=== PATIENT | male | born 1955 | race African-American/Black ===

== ENCOUNTER 2017-08-01 19:01 | Inpatient (IN) | payer MEDICARE, MEDICAID ==
[2017-08-01] MEDS ORDERED: Ondansetron HCl/PF 4 MG/2 ML Vial ONE (19:42)
[2017-08-01 19:43] LABS: #Basophils 0.1 thou/uL (0.0-0.2); #Eosinphils 0.1 thou/uL (0.0-0.7); #Lymphocytes 1.3 thou/uL (1.20-3.40); #Monocytes 0.7 thou/uL (0.11-0.59); #Neutrophils 5.5 thou/uL (1.40-6.50); %Basophils 0.8 % (0.0-1.0); %Eosinophils 0.7 % (0.0-10.0); %Lymphocytes 16.5 % (21.0-51.0); %Monocytes 9.8 % (0.0-10.0); Hematocrit 50.8 % (42.0-52.0); Mean Platelet Volume 9.3 fL (7.4-10.4); Red Blood Cell (RBC) Count 6.12 mill/uL (4.70-6.10); White Blood Cell (WBC) Count 7.6 thou/uL (4.8-10.8)
[2017-08-01 19:50] LABS: PTT 34.4 SEC (22.9-36.1)
[2017-08-01] MEDS ORDERED: Pantoprazole 40 MG VIAL ONE (20:00)
[2017-08-01 20:04] LABS: ALT (SGPT) 33 U/L (8-55); AST (SGOT) 67 U/L (5-34); Alkaline Phosphatase 185 U/L (40-150); Anion Gap 15 mmol/L (10-20); BUN (Urea Nitrogen) 17 mg/dL (8.4-25.7); Bilirubin, Total 1.1 mg/dL (0.2-1.2); Calc. Creatinine Clearance 0 mL/min (70-130); Calcium 9.9 mg/dL (7.8-10.44); Carbon Dioxide 25 mmol/L (23-31); Chloride 99 mmol/L (98-107); Estimated GFR-MDRD 81; Globulin 5.5 g/dL (2.4-3.5); Protein, Total 9.2 g/dL (5.8-8.1)
[2017-08-01] MEDS ORDERED: Pantoprazole 80 MG, Admixture Fee 1 EACH in Sodium Chloride 0.9% 100 ML IVP SCH (20:30)
--- NOTE | 2017-08-01 21:30 | RAD ---
ACUTE ABDOMINAL SERIES 08/01/17 HISTORY: Hypoxemia, abdominal distention, GI bleed. CHEST X-RAY: Compared to study on 03/28/13. FINDINGS: Tracheostomy device and nasogastric tube are no longer visualized. There is elevation of the right h emidiaphragm with mild atelectasis at the right lung base. The lungs are otherwise clear. The cardia c silhouette is at the upper limits of normal in size. Vascular calcification seen in the thoracic a siva. No free intraperitoneal gas is seen beneath the hemidiaphragms. There has been no other interv al change from the prior exam. SUPINE AND LEFT LATERAL DECUBITUS VIEWS OF THE ABDOMEN: There is prominent gaseous distention of multiple loops of bowel with moderate amount of retained fe dahlia material seen in the region of the ascending colon and at the hepatic flexure. Larger dilated lo op of gas filled bowel is seen within the central abdomen and upper pelvis which probably represents gaseous distention and dilatation of the sigmoid colon. This dilated loop of gas filled bowel was a lso present on CT abdomen and pelvis on 06/24/17. Large amount of retained fecal material in the regio n of the rectum on the prior exam is not visualized on this study. There is increased density focus seen medial to the left hip and adjacent to the ischial tuberosity likely related to area of heterot opic ossification which was seen on the prior CT exam as well. IMPRESSION: 1. Elevation right hemidiaphragm with volume loss at the right lung base. 2. Moderate amount of retained fecal material seen in the region of the ascending colon and inv olving the transverse colon and to a lesser extent splenic flexure. 3. Persistent prominent gaseous distention and dilatation of the sigmoid colon. 4. Gastrostomy tube again noted in place. POS: [facility]
[2017-08-02 00:05] LABS: Bilirubin Negative (Negative); Glucose, Urine (Dipstick) Negative (Negative); Ketone, Urine Negative (Negative); Nitrite Negative (Negative); Protein, Urine (Dipstick) 30 mg/dL (Neg-Trace)
[2017-08-02 00:07] LABS: Bacteria/HPF None Seen HPF (None Seen); Hyaline Casts/LPF 0-3 HYALINE CAST LPF (0-3 Hyaline); Squamous Epithelial None Seen HPF (0-3); WBC/HPF None Seen HPF (0-3)
[2017-08-02 00:14] LABS: Blood, Urine Negative (Negative)
[2017-08-02 00:17] LABS: RBC/HPF 0-3 HPF (0-3)
[2017-08-02] MEDS ORDERED: Ondansetron ODT 4 MG TAB SL PRN ×2 (01:16→05:54)
[2017-08-02] MEDS ORDERED: Ondansetron HCl/PF 4 MG/2 ML Vial IVP PRN ×2 (01:16→17:39)
[2017-08-02] MEDS ORDERED: Acetaminophen 325 MG TAB PO PRN (01:16)
[2017-08-02] MEDS ORDERED: Sodium Chloride 0.9% 1,000 ML IV SCH (01:30)
[2017-08-02] MEDS ORDERED: hydrALAZINE 20 MG/ML VIAL SLOW IVP PRN (05:31)
[2017-08-02] MEDS ORDERED: cloNIDine 0.1 MG TAB PO PRN (05:31)
[2017-08-02] MEDS ORDERED: Simethicone Chewable 80 MG TAB PER TUBE PRN (05:31)
[2017-08-02] MEDS ORDERED: Ondansetron ODT 4 MG TAB PO PRN (05:31)
[2017-08-02] MEDS ORDERED: Bisacodyl 10 MG SUPP PR PRN (05:31)
[2017-08-02] MEDS ORDERED: Docusate Sodium 100 MG/10 ML UDCUP PER TUBE PRN (05:31)
[2017-08-02] MEDS ORDERED: Senokot 8.6 MG TAB PER TUBE PRN (05:31)
[2017-08-02] MEDS: Sodium Chloride 0.9% 1,000 ML IV SCH ×4 (05:50→23:05)
[2017-08-02] MEDS ORDERED: cloNIDine 0.1 MG TAB PER TUBE PRN (05:53)
--- NOTE | 2017-08-02 07:19 | HP ---
DATE OF ADMISSION: 08/01/2017 PRIMARY CARE PROVIDER: Dr. Aquiles Dillard. CHIEF COMPLAINT: Vomiting blood and abdominal distention. 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 The patient was apparently noted by retirement staff with vomiting blo od in the last 24 hours. The patient apparently had complained of shortness of breath at which poin t the tube feedings were held. The patient sustained a catastrophic CVA in 2012 with flaccid hemipl egia on the left, persistent expressive aphasia as well as undergoing tracheostomy and PEG tube plac ement. The patient currently receives Osmolite 1.5 at 55 mL per hour 22 hours of the day; however, the tracheostomy tube was subsequently discontinued. The patient underwent general evaluation inclu ding CBC assessments in the emergency room showing a hemoglobin of 17. Coagulation studies were neg ative and the patient was initiated on IV Protonix at 8 mg per hour after an initial bolus of 40 mg x1. Patient received intravenous normal saline and Zofran as well as undergoing abdominal radiograp hs that showing large retained fecal material in the ascending and transverse colon. The patient wa s also noted with gaseous distention and dilation of the sigmoid colon. Nursing personnel report in creased bowel movements since admission through the emergency room. PAST MEDICAL HISTORY: 1. 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 2. Expressive aphasia, persistent secondary to #1. 3. Dysphagia secondary to #1 with chronic PEG tube feeds. 4. Hypertension. 5. Gastroesophageal reflux disease. PAST SURGICAL HISTORY: 1. Status post PEG tube placement. 2. Status post tracheostomy with subsequent removal. CURRENT MEDICATIONS: 1. Amlodipine 5 mg per PEG tube daily. 2. Vitamin D3 of 2000 units per PEG tube daily. 3. Docusate sodium 100 mg per PEG tube b.i.d. p.r.n. 4. Pepcid 20 mg per PEG tube b.i.d. 5. Glycopyrrolate 1 mg per PEG tube b.i.d. 6. Lisinopril 40 mg per PEG tube daily. 7. Lopressor 25 mg per PEG tube b.i.d. 8. Multivitamin 5 mL per PEG tube daily. 9. Klor-Con 20 mEq per PEG tube daily. 10. Simethicone 80 mg per PEG tube q.i.d. p.r.n. 11. Hydralazine 50 mg per PEG tube q.i.d. ALLERGIES: No known drug allergies. FAMILY HISTORY: No inheritable diseases per report. SOCIAL HISTORY: Resides at [facility]. No current alcohol, tobacco, or ill icit drug use. Requires 100% care for activities of daily living. REVIEW OF SYSTEMS: The following complete review of systems was negative, unless otherwise mentione d in the HPI or below: Constitutional: Weight loss or gain, ability to conduct usual activities. Skin: Rash, itching. Eyes: Double vision, pain. ENT/Mouth: Nose bleeding, neck stiffness, pain, tenderness. Cardiovascular: Palpitations, dyspnea on exertion, orthopnea. Respiratory: Shortness of breath, wheezing, cough, hemoptysis, fever or night sweats. Gastrointestinal: Poor appetite, abdominal pain, heartburn, nausea, vomiting, constipation, or diar lissett. Genitourinary: Urgency, frequency, dysuria, nocturia. Musculoskeletal: Pain, swelling. Neurologic/Psychiatric: Anxiety, depression. Allergy/Immunologic: Skin rash, bleeding tendency. PHYSICAL EXAMINATION: VITAL SIGNS: Currently, blood pressure 111/72, pulse 97, respiratory rate is 20, temperature 99 deg [place] Fahrenheit, O2 saturation 93% on 2 liters per minute by nasal cannula. GENERAL APPEARANCE: This is a 62-year-old male, opens eyes to questions, expressiv e aphasia. HEENT EXAM: Pupils are equal, round, and reactive to light and accommodation. Extraocular muscles are intact. No scleral icterus, no conjunctival injection. Nares patent. OP is clear. NECK: Supple, no cervical adenopathy, no thyromegaly, no carotid bruits, no JVD appreciated. Cervi dahlia spine with full active and passive range of motion. No meningeal signs appreciated. CHEST: Occasional crackles in basilar segments bilaterally. CARDIOVASCULAR EXAM: S1 and S2, without noted murmur. ABDOMEN: Distended, bowel sounds are positive. PEG tube intact. EXTREMITIES: Warm and dry with fair turgor. No clubbing, cyanosis, or asymmetric edema appreciated . Pulses palpable distally at the dorsalis pedis, posterior tibial, and popliteal arteries bilatera lly. Capillary refill less than 2 seconds. NEUROLOGIC EXAM: Expressive aphasia. Left flaccid hemiparesis. Positive for dysphagia. PERTINENT LABORATORY DATA AND X-RAY FINDINGS: Sodium 134, potassium of 4.5, chloride 99, CO2 of 25, BUN 17, creatinine 1.11. Estimated GFR of 81, glucose 95, calcium 9.9, AST 67, ALT 33, alkaline ph osphatase 185, albumin 3.7. CBC showed a white blood cell count 7.6, hemoglobin 17, hematocrit 51, platelet count of 187 with normal differential. PT 14.0, INR 1.1, PTT 34.4. Urinalysis is negative . Acute abdominal series dated on 08/01/2017, showed elevated right hemidiaphragm with volume loss of the right lung base. Moderate amount of retained fecal material in the region of the ascending a nd transverse colon with lesser extent of splenic flexure. Prominent gaseous distention and dilatio n of the sigmoid colon. Gastrostomy tube in place. ASSESSMENT AND PLAN: 1. Question of upper gastrointestinal bleed. The patient will be placed in observation status on m edical floor. We will continue intravenous normal saline at 100 mL per hour. Continue serial CBC a ssessment. Continue Protonix 40 mg IV every 12 hours. We will consult GI service for any further r ecommendations and to consider endoscopy if patient noted with recurrent hematemesis. 2. Abdominal distention. Questionable baseline finding. Continue stool softeners as well as Dulco lax per rectum. Continue to monitor voiding. 3. History of cerebrovascular accident with residual left hemiparesis and expressive aphasia. We w ill consult Speech Therapy for evaluation and recommendations. N.p.o. status. Hold tube feeds, pen ding GI evaluation. 4. Hypertension. Resume antihypertensive regimen with amlodipine 5 mg daily in addition to lisinop ril 40 mg per PEG tube b.i.d., metoprolol tartrate 25 mg b.i.d., and hydralazine 50 mg q.i.d. 5. Prophylaxis. Sequential compression devices while on bed. General aspiration risk, precautions . Speech therapy evaluation pending. 6. Code status is FULL. Surrogate medical decision maker is the patient's daughter, Griselda Farfan son.
[2017-08-02] MEDS ORDERED: FLU VACC QS2017-18 36 mo. & older 0.5 ML SYRINGE IM ONE (09:00)
[2017-08-02 09:08] LABS: ALT (SGPT) 28 U/L (8-55); AST (SGOT) 59 U/L (5-34); Alkaline Phosphatase 142 U/L (40-150); Anion Gap 12 mmol/L (10-20); BUN (Urea Nitrogen) 23 mg/dL (8.4-25.7); Bilirubin, Total 0.8 mg/dL (0.2-1.2); Calc. Creatinine Clearance 76 mL/min (70-130); Calcium 8.9 mg/dL (7.8-10.44); Carbon Dioxide 27 mmol/L (23-31); Chloride 103 mmol/L (98-107); Estimated GFR-MDRD 68; Globulin 4.2 g/dL (2.4-3.5); Protein, Total 7.2 g/dL (5.8-8.1)
[2017-08-02] MEDS: Metoprolol Tartrate 25 MG TAB PER TUBE SCH ×2 (09:45→23:03)
[2017-08-02] MEDS: hydrALAZINE 25 MG TAB PER TUBE SCH ×4 (09:45→23:03)
[2017-08-02] MEDS: Lisinopril 20 MG TAB PER TUBE SCH ×2 (09:45→23:02)
[2017-08-02] MEDS: Pantoprazole 40 MG VIAL IVP SCH ×2 (09:47→23:05)
[2017-08-02] MEDS: Amlodipine 5 MG TAB PER TUBE SCH (09:48)
[2017-08-02] MEDS: Glycopyrrolate 1 MG TAB PER TUBE SCH ×2 (09:49→23:04)
[2017-08-02] MEDS ORDERED: Diprivan 20 ML ONE (16:32)
[2017-08-02] MEDS ORDERED: Propofol 200 MG/20 ML VIAL ONE (17:19)
[2017-08-02] MEDS ORDERED: Promethazine HCl 25 MG/ML VIAL IM PRN (17:39)
[2017-08-02] MEDS ORDERED: Promethazine HCl 25 MG/ML VIAL SLOW IVP PRN (17:39)
--- NOTE | 2017-08-02 18:02 | CON ---
DATE OF CONSULTATION: 08/02/2017 REFERRING PHYSICIAN: Сергей Finnegan D.O. REASON FOR CONSULTATION: History of vomiting coffee-ground material in the [facility]. HISTORY OF PRESENT ILLNESS: Mr. Adiel Husain is a 62-year-old unfortunate black male who has had a CVA 40 years ago with aphasia and left-sided weakness. The patient has had a PEG tube placement do ne in the past. The patient is a [facility] resident. The patient is really nonverbal. The rashi ent was seen in the room along with the patient's mother and sister. Since admission to the [facility], the patient has had no nausea and vomiting. He is having liquid stool. There is no prior histor y of any peptic ulcer disease. No other relevant history. PAST MEDICAL HISTORY: 1. CVA with residual left-sided weakness, aphasia. 2. Hypertension. 3. Chronic acid reflux disease. SURGERIES: 1. Status post tracheostomy and PEG tube placement after stroke in the past. MEDICATIONS: 1. Amlodipine 5 mg p.o. once a day through the PEG tube. 2. Vitamin D3 2000 units once a day. 3. Docusate sodium 100 mg twice a day. 4. Pepcid 20 mg b.i.d. 5. Glycopyrrolate 1 mg per PEG tube twice a day. 6. Lisinopril 40 mg once a day. 7. Lopressor 25 once a day. 8. Multivitamin . 9. Hydralazine. ALLERGIES: None. FAMILY HISTORY: Unobtainable as he is nonverbal. SOCIAL HISTORY: The patient is a [facility] resident. No history of alcohol, drug abuse, or smok ing in the past. REVIEW OF SYSTEMS: Unobtainable. PHYSICAL EXAMINATION: GENERAL: Patient is obese. He is awake and does nod his head when asked questions. He is nonverba l. VITAL SIGNS: Afebrile. Pulse is 97, blood pressure 105/70. NECK: Supple. CARDIOVASCULAR: First and second heart sounds normal. LUNGS: Clear to auscultation. ABDOMEN: Soft to palpate. He has a PEG tube in place. The PEG tube site appears okay. Abdomen is nontender. No organomegaly or masses. EXTREMITIES: No edema. LABORATORY DATA: CBC shows WBC 7000, hemoglobin 17, hematocrit 50.8, MCV , platelet count 187 ,000, polymorphs 72, lymphocytes 16, monocytes 9. Chemistry panel: Sodium 138, potassium 4.3, chlo ride 103, bicarbonate 27, BUN is 23, creatinine 1.29, glucose is 98, calcium 8.9, bilirubin 0.8, AST 59, ALT 28, alkaline phosphatase 142, total protein 7.2, albumin 3, globulin 4.2. CLINICAL IMPRESSION: A 62-year-old black male status post cerebrovascular accident, status post PEG tube placement. The patient was found to have coffee-ground vomiting in the [facility]. However , his blood count is actually stable. The patient has had no more nausea or vomiting since admissio n. I did speak to the family about the patient having an EGD. The family is agreeable. I will tommy n for EGD this afternoon, and I will make further recommendations after EGD.
--- NOTE | 2017-08-02 22:57 | OP ---
DATE OF PROCEDURE: 08/02/2017 OPERATIVE PROCEDURE: Esophagogastroduodenoscopy. PREOPERATIVE DIAGNOSIS: Upper gastrointestinal bleeding. POSTOPERATIVE DIAGNOSES: 1. Hiatus hernia. 2. Thick coating and mucosa from food material. 3. Linear gastric ulcer of the proximal stomach with gastritis. 4. Otherwise, normal exam. That time endoscopy, no active bleeding seen. PROCEDURE IN DETAIL: The patient was placed on his left lateral position and was given sedation by Anesthesia Department. A Pentax video gastroscope under direct vision was passed down the oropharyn x of gastroesophageal junction into the stomach. The thick coating in the esophagus was some retain ed food material; this was suctioned. The underlying mucosa appeared normal. The patient has hiata l hernia. Upon entering the stomach, the scope was retroflexed to visualize the fundus and cardia. The patient had focal gastritis and also a linear ulceration over the proximal gastric body. No ac tive bleeding seen. No visible vessel seen. Over the lower gastric body, gastric antrum, no pathol ogy seen. The duodenal bulb, descending duodenum, no pathology seen. The stomach decompressed and the scope removed. RECOMMENDATIONS: 1. Protonix 40 once a day. 2. Restart tube feeding. The patient's blood count remained stable and no new developments, consid er discharge back to [facility] tomorrow.
[2017-08-03 06:39] LABS: Band 8 % (5-11); Hematocrit 38.3 % (42.0-52.0); Mean Platelet Volume 9.5 fL (7.4-10.4); Neutrophil 56 % (42-75); Red Blood Cell (RBC) Count 4.59 mill/uL (4.70-6.10); White Blood Cell (WBC) Count 5.9 thou/uL (4.8-10.8)
[2017-08-03] MEDS: Pantoprazole 40 MG VIAL IVP SCH ×2 (10:02→20:30)
[2017-08-03] MEDS: hydrALAZINE 25 MG TAB PER TUBE SCH (10:07)
[2017-08-03] MEDS: Lisinopril 20 MG TAB PER TUBE SCH (10:07)
[2017-08-03] MEDS: Amlodipine 5 MG TAB PER TUBE SCH (10:08)
[2017-08-03] MEDS: Sodium Chloride 0.9% 1,000 ML IV SCH ×2 (10:08→20:34)
[2017-08-03] MEDS: Metoprolol Tartrate 25 MG TAB PER TUBE SCH ×2 (10:08→20:29)
[2017-08-03] MEDS: Glycopyrrolate 1 MG TAB PER TUBE SCH ×2 (10:08→20:39)
--- NOTE | 2017-08-03 11:28 | RAD ---
SINGLE VIEW OF THE CHEST: COMPARISON: 03/28/2013 HISTORY: Aspiration pneumonia. FINDINGS: Single view of the chest shows a normal sized cardiomediastinal silhouette. There is no evidence of consolidation, mass, or pleural effusion. The bones are unremarkable. IMPRESSION: No evidence of acute cardiopulmonary disease. POS: [facility]
--- NOTE | 2017-08-03 15:01 | PDOC.PN ---
- Subjective Encounter Start Date: 08/03/17 Encounter Start Time: 07:00 Subjective: awake, non verbal, not in distress - Objective MAR Reviewed: Yes Result Diagrams: 08/03/17 05:34 08/02/17 08:32 Phys Exam - Physical Examination HEENT: sclera anicteric dry mucosa Neck: no JVD, supple Respiratory: no wheezing, no rales Cardiovascular: RRR, no significant murmur Gastrointestinal: soft, positive bowel sounds peg+ Musculoskeletal: pulses present has contractures of all extremities quadriparesis, with min movement of upper extre Dx/Plan (1) GI bleed Code(s): K92.2 - GASTROINTESTINAL HEMORRHAGE, UNSPECIFIED Status: Acute Qualifiers: GI bleed type/associated pathology: gastric ulcer Qualified Code(s): K25.4 - Chronic or unspecified gastric ulcer with hemorrhage (2) Hypotension Status: Acute Qualifiers: Hypotension type: unspecified hypotension type Qualified Code(s): I95.9 - Hypotension, unspecified (3) Sepsis Code(s): A41.9 - SEPSIS, UNSPECIFIED ORGANISM Status: Suspected Qualifiers: Sepsis type: sepsis due to unspecified organism Qualified Code(s): A41.9 - Sepsis, unspecified organism (4) H/O: CVA (cerebrovascular accident) Code(s): Z86.73 - PRSNL HX OF TIA (TIA), AND CEREB INFRC W/O RESID DEFICITS Status: Chronic Comment: with dense left hemiplegia and quadriparesis with contractures now (5) PUD (peptic ulcer disease) Code(s): K27.9 - PEPTIC ULC, SITE UNSP, UNSP AC OR CHR, W/O HEMOR OR PERF Status: Acute (6) Dysphagia Code(s): R13.10 - DYSPHAGIA, UNSPECIFIED Status: Chronic Comment: has peg tube (7) FTT (failure to thrive) in adult Status: Chronic - Plan montiel cultures stat -: empiric levaquin, iv fluids 100mls/hr -: has persistent hypotension with temp of 99 -: change status to inpt -: continue peg feeding, is on protonix bid * . Review of Systems - Medications/Allergies Allergies/Adverse Reactions: Allergies Allergy/AdvReac Type Severity Reaction Status Date / Time No Known Allergies Allergy Verified 08/02/17 02:09 Medications: Current Medications Amlodipine Besylate (Norvasc) 5 mg PER TUBE DAILY [facility] Last Admin: 08/03/17 10:08 Dose: 5 mg Bisacodyl (Dulcolax) 10 mg GA Q24H PRN PRN Reason: Constipation Cholecalciferol (Vitamin D3) 2,000 units PER TUBE DAILY [facility] Last Admin: 08/03/17 10:07 Dose: 2,000 units Clonidine HCl (Catapres) 0.1 mg PER TUBE Q4H PRN PRN Reason: Systolic BP > 180 Docusate Sodium (Colace Liquid) 100 mg PER TUBE BID PRN PRN Reason: Constipation Glycopyrrolate (Robinul) 1 mg PER TUBE BID [facility] Last Admin: 08/03/17 10:08 Dose: 1 mg Hydralazine HCl (Apresoline) 10 mg SLOW IVP Q4H PRN PRN Reason: Systolic BP > 180 Sodium Chloride (Normal Saline 0.9%) 1,000 mls @ 100 mls/hr IV .Q10H [facility] Last Admin: 08/03/17 10:08 Dose: 1,000 mls Levofloxacin 500 mg/ Device 100 mls @ 100 mls/hr IVPB 1500 [facility] Metoprolol Tartrate (Lopressor) 25 mg PER TUBE BID [facility] Last Admin: 08/03/17 10:08 Dose: 25 mg Ondansetron HCl (Zofran) 4 mg IVP Q6H PRN PRN Reason: Nausea/Vomiting Ondansetron HCl (Zofran Odt) 4 mg SL Q6H PRN PRN Reason: Nausea/Vomiting Pantoprazole Sodium (Protonix) 40 mg IVP Q12HR [facility] Last Admin: 08/03/17 10:02 Dose: 40 mg Potassium Chloride (Klor-Con) 20 meq PER TUBE DAILY [facility] Last Admin: 08/03/17 10:07 Dose: 20 meq Senna (Senokot) 2 tab PER TUBE HSPRN PRN PRN Reason: Constipation Simethicone (Mylicon Chewable) 80 mg PER TUBE QID PRN PRN Reason: Gas Pain
[2017-08-03] MEDS: Acetaminophen 650 MG/20.3 ML UDCUP PER TUBE PRN (23:42)
[2017-08-04] MEDS: Sodium Chloride 0.9% 1,000 ML IV SCH ×2 (07:13→18:43)
[2017-08-04 08:54] LABS: ALT (SGPT) 28 U/L (8-55); AST (SGOT) 93 U/L (5-34); Alkaline Phosphatase 112 U/L (40-150); Anion Gap 11 mmol/L (10-20); BUN (Urea Nitrogen) 24 mg/dL (8.4-25.7); Bilirubin, Total 0.4 mg/dL (0.2-1.2); Calc. Creatinine Clearance 90 mL/min (70-130); Calcium 8.5 mg/dL (7.8-10.44); Carbon Dioxide 20 mmol/L (23-31); Chloride 111 mmol/L (98-107); Estimated GFR-MDRD 84; Globulin 3.6 g/dL (2.4-3.5); Protein, Total 6.2 g/dL (5.8-8.1)
[2017-08-04 09:13] LABS: Band 12 % (5-11); Hematocrit 38.4 % (42.0-52.0); Mean Platelet Volume 9.3 fL (7.4-10.4); Metamyelocyte 4 % (0-0); Neutrophil 42 % (42-75); Reactive Lymphocytes 2 % (0-10); Red Blood Cell (RBC) Count 4.55 mill/uL (4.70-6.10); Target Cells SLIGHT = 2-5 cells (100X) (0-1/hpf); White Blood Cell (WBC) Count 4.6 thou/uL (4.8-10.8)
[2017-08-04] MEDS: Amlodipine 5 MG TAB PER TUBE SCH (10:01)
[2017-08-04] MEDS: Metoprolol Tartrate 25 MG TAB PER TUBE SCH (10:01)
[2017-08-04] MEDS: Glycopyrrolate 1 MG TAB PER TUBE SCH (10:04)
[2017-08-04] MEDS: Pantoprazole 40 MG VIAL IVP SCH ×2 (10:04→22:02)
--- NOTE | 2017-08-04 11:43 | PDOC.PN ---
- Subjective Encounter Start Date: 08/04/17 Encounter Start Time: 11:00 Subjective: awake, not in distress -: is non verbal - Objective Resuscitation Status: Resuscitation Status DNR:Do Not Resuscitate MAR Reviewed: Yes Vital Signs & Weight: Vital Signs (12 hours) Temp Pulse Resp BP BP Pulse Ox 08/04/17 11:35 98.4 F 106 H 18 89/56 L 95 08/04/17 10:01 84 90/64 08/04/17 08:00 98.8 F 84 16 98 08/04/17 07:14 98.8 F 84 16 90/62 98 08/04/17 05:00 98.9 F 96 20 86/57 L 98 08/04/17 01:00 99.6 F 90 20 99/69 98 I&O: 08/03/17 08/04/17 08/05/17 06:59 06:59 06:59 Intake Total 3320 180 Output Total 1000 Balance 2320 180 Result Diagrams: 08/04/17 08:24 08/04/17 08:24 Phys Exam - Physical Examination HEENT: sclera anicteric dry mucosa Neck: no JVD, supple Respiratory: no wheezing rhonchi+ Cardiovascular: RRR, no significant murmur Gastrointestinal: soft, non-tender, positive bowel sounds peg in place, no rigidity or guarding Musculoskeletal: pulses present contractures of all extremities quadriparesis Dx/Plan (1) Sepsis Code(s): A41.9 - SEPSIS, UNSPECIFIED ORGANISM Status: Suspected Qualifiers: Sepsis type: sepsis due to unspecified organism Qualified Code(s): A41.9 - Sepsis, unspecified organism (2) Hypotension Status: Acute Qualifiers: Hypotension type: unspecified hypotension type Qualified Code(s): I95.9 - Hypotension, unspecified (3) GI bleed Code(s): K92.2 - GASTROINTESTINAL HEMORRHAGE, UNSPECIFIED Status: Resolved Qualifiers: GI bleed type/associated pathology: gastric ulcer Qualified Code(s): K25.4 - Chronic or unspecified gastric ulcer with hemorrhage (4) H/O: CVA (cerebrovascular accident) Code(s): Z86.73 - PRSNL HX OF TIA (TIA), AND CEREB INFRC W/O RESID DEFICITS Status: Chronic Comment: with dense left hemiplegia and quadriparesis with contractures now (5) PUD (peptic ulcer disease) Code(s): K27.9 - PEPTIC ULC, SITE UNSP, UNSP AC OR CHR, W/O HEMOR OR PERF Status: Acute (6) Dysphagia Code(s): R13.10 - DYSPHAGIA, UNSPECIFIED Status: Chronic Comment: has peg tube (7) FTT (failure to thrive) in adult Status: Chronic (8) poor functional status Status: Acute Comment: is bed bound - Plan has persistent hypotension despite being on 100ml NS/hr plus 75mls/hr peg -: -feeds, is off most of his htn meds, unclear etiology, likely sepsis -: d/w daughter over phone reg current condition, he is DNR -: montiel cultures were obtained yesterday, prelim blood cs -ve, h/h stable -: CT chest/abd/pelvis no abnormality to explain hypotension * . will change antibiotics to meropenem and vanc for unknown source of sepsis cortisol is normal, will add some stress dose to perk him up. Transfer pt to imcu, dopamine small dose with iv fluids, watch for overload. Peg tube is confirmed to be in stomach on CT. Prognosis guarded. Review of Systems - Medications/Allergies Allergies/Adverse Reactions: Allergies Allergy/AdvReac Type Severity Reaction Status Date / Time No Known Allergies Allergy Verified 08/02/17 02:09 Medications: Current Medications Acetaminophen (Tylenol Elixir) 650 mg PER TUBE Q4H PRN PRN Reason: pain/fever Last Admin: 08/03/17 23:42 Dose: 650 mg Bisacodyl (Dulcolax) 10 mg IN Q24H PRN PRN Reason: Constipation Cholecalciferol (Vitamin D3) 2,000 units PER TUBE DAILY [facility] Last Admin: 08/04/17 10:04 Dose: 2,000 units Clonidine HCl (Catapres) 0.1 mg PER TUBE Q4H PRN PRN Reason: Systolic BP > 180 Docusate Sodium (Colace Liquid) 100 mg PER TUBE BID PRN PRN Reason: Constipation Hydralazine HCl (Apresoline) 10 mg SLOW IVP Q4H PRN PRN Reason: Systolic BP > 180 Sodium Chloride (Normal Saline 0.9%) 1,000 mls @ 100 mls/hr IV .Q10H [facility] Last Admin: 08/04/17 07:13 Dose: 1,000 mls Ondansetron HCl (Zofran) 4 mg IVP Q6H PRN PRN Reason: Nausea/Vomiting Ondansetron HCl (Zofran Odt) 4 mg SL Q6H PRN PRN Reason: Nausea/Vomiting Pantoprazole Sodium (Protonix) 40 mg IVP Q12HR [facility] Last Admin: 08/04/17 10:04 Dose: 40 mg Potassium Chloride (Klor-Con) 20 meq PER TUBE DAILY [facility] Last Admin: 08/04/17 10:04 Dose: 20 meq Senna (Senokot) 2 tab PER TUBE HSPRN PRN PRN Reason: Constipation Simethicone (Mylicon Chewable) 80 mg PER TUBE QID PRN PRN Reason: Gas Pain
[2017-08-04] MEDS ORDERED: DOPamine 400 MG/D5W 250 ML 250 ML IVPB SCH (11:45)
--- NOTE | 2017-08-04 11:51 | CT ---
CT CHEST WITHOUT CONTRAST CT ABDOMEN AND PELVIS WITHOUT CONTRAST: Date: 08/04/17 COMPARISON: None. HISTORY: Sepsis and hypotension. Evaluate for bowel perforation. Patient has a gastrostomy tube. TECHNIQUE: Multiple contiguous axial images were obtained in a CT of the chest, abdomen, and pelvis without con trast. Coronal reformats were performed. FINDINGS: CT CHEST: Heart is enlarged. No obvious hilar or mediastinal lymphadenopathy are seen, but evaluation is limit ed without IV contrast. Atelectasis is seen in the right lung base. There are minimal bilateral pleural effusions. No pneumo thorax is seen. No focal infiltrates are present. The chest wall soft tissues are unremarkable. Degenerative changes are seen in the thoracic spine. CT ABDOMEN/PELVIS: The liver, gallbladder, kidneys, adrenal glands, spleen, and pancreas are unremarkable, although valdo luation is limited without IV contrast. No free air, free fluid, or stranding changes are seen in th e abdomen or pelvis. A gastrostomy tube is seen in the stomach. A moderate amount of stool is seen in the colon. The smal l bowel is unremarkable. The appendix is normal. No abdominal or pelvic lymphadenopathy seen. Atherosclerotic calcifications are seen in the aorta. Degenerative changes are seen in the lumbar spine. There appears to be articulation of the proximal aspect of the inferior pubic ramus with bony formation in this location. IMPRESSION: 1. Minimal bilateral pleural effusions without acute intrathoracic abnormality. 2. No evidence of acute intra-abdominal/pelvic abnormality. 3. Constipation. POS: [facility]
[2017-08-04] MEDS ORDERED: Enoxaparin Sodium 40 MG/0.4 ML SYRINGE SC SCH (12:00)
--- NOTE | 2017-08-04 13:12 | PDOC.EVN ---
Event Note - Event Note Event Note: Patient has afib with rvr, will give one dose digoxin 0.5mg and one dose cardizem 10mg iv x1, cardizem drip 5mg/hr. Not sure if thats the cause of hypotension as his HR recorded was always around 80's on 4th floor, hence may dc antibiotics in am if cultures are -ve. Cardiology consult.
--- NOTE | 2017-08-04 13:13 | ULT ---
BILATERAL LOWER EXTREMITY VENOUS ULTRASOUND: Date: 08/04/17 COMPARISON: None. HISTORY: Bilateral lower extremity edema. Persistent hypotension and sepsis. TECHNIQUE: Multiplanar Dill scale and color Doppler images were obtained in a bilateral lower extremity venous ultrasound. Spectral analysis of the Doppler waveforms were performed. FINDINGS: The left lower extremity shows partial thrombus within the mid portion of the superficial femoral ve in and extending down to below the knee popliteal vein. The more proximal common femoral vein and pr oximal superficial femoral vein show no evidence of thrombus on the left. The left posterior tibial vein and greater saphenous vein are patent without evidence of thrombus. The right lower extremity shows no evidence of thrombus. The common femoral vein, superficial femora l vein, profunda femoral vein, popliteal vein, and venous structures distal to the right knee show n ormal compression, flow, and augmentation without evidence of thrombus. IMPRESSION: Partially occlusive thrombus in the left leg. POS: [facility]
[2017-08-04] MEDS ORDERED: Digoxin 0.5 MG/2 ML AMP SLOW IVP SCH (13:15)
[2017-08-04] MEDS: Vancomycin HCl 1.5 GM in Sodium Chloride 0.9% 250 ML 300 ML IVPB SCH (13:36)
[2017-08-04] MEDS: Meropenem 1 GM in Sodium Chloride 0.9% 100 ML IVPB SCH ×2 (14:25→22:01)
--- NOTE | 2017-08-04 15:44 | CON ---
DATE OF SERVICE: 08/04/2017 REASON FOR CONSULTATION: Atrial fibrillation with rapid ventricular response. HISTORY OF PRESENT ILLNESS: Mr. Husain is an unfortunate 62-year-old gentleman who has now been s een or evaluated by Cardiology in the past. He recently presented with hematemesis. He underwent e ndoscopy that was negative. He then was found to be hypotensive this morning. He was found to be i n atrial fibrillation with RVR and transferred to the ICU for further disposition. While in the ICU , his blood pressure has been stable. His atrial fibrillation after being placed on IV Cardizem in addition to digoxin has improved. PAST MEDICAL HISTORY: CVA, hypertension PAST SURGICAL HISTORY: PEG tube placement and tracheostomy. HOME MEDICATIONS: Include amlodipine, Pepcid, lisinopril, Lopressor, multivitamin, and hydralazine. ALLERGIES: None. FAMILY HISTORY: Negative. REVIEW OF SYSTEMS: A 10 point review of systems is unobtainable. PHYSICAL EXAMINATION: GENERAL: The patient has significant left-sided weakness and aphasic. VITAL SIGNS: Blood pressure 108/70, pulse is 80-100, respirations 20. NEUROLOGIC: The patient is alert and oriented times 3 with no focal neurologic deficits. HEENT: Sclerae without icterus. Mouth has moist mucous membranes with normal pallor. NECK: No JVD. Carotid upstroke brisk. No bruits bilaterally. LUNGS: Clear to auscultation with unlabored respirations. BACK: No scoliosis or kyphosis. CARDIAC: Regular rate and rhythm with normal S1 and S2. No S3 or S4 noted. No significant rubs, murmurs, thrills, or gallops noted throughout the precordium. PMI is not displaced. There is no parasternal heave. ABDOMEN: Soft, nontender, nondistended. No peritoneal signs present. No hepatosplenomegaly. No abnormal striae. EXTREMITIES: 2+ femoral and 2+ dorsalis pedis pulses. No cyanosis, clubbing, or edema. SKIN: No gross abnormalities. PERTINENT LABORATORY DATA: Hemoglobin 12.7, hematocrit 38.4, white count 4.6. IMPRESSION: 1. Atrial fibrillation with rapid ventricular response. 2. Hypotension. RECOMMENDATIONS: 1. Add p.o. Cardizem 30 mg q.6 h. for PEG tube. 2. Digoxin. 3. Given IV fluids and blood pressure remained low.
[2017-08-04] MEDS ORDERED: Vancomycin HCl 1 GM in Premix Bag 1 BAG IVPB SCH (21:00)
[2017-08-04] MEDS: Enoxaparin Sodium 80 MG/0.8 ML SYRINGE SC SCH (22:00)
[2017-08-05] MEDS: Vancomycin HCl 1.5 GM in Sodium Chloride 0.9% 250 ML 300 ML IVPB SCH ×2 (00:04→12:53)
[2017-08-05] MEDS: Sodium Chloride 0.9% 1,000 ML IV SCH ×3 (03:31→21:23)
[2017-08-05] MEDS: Meropenem 1 GM in Sodium Chloride 0.9% 100 ML IVPB SCH ×3 (05:19→21:29)
[2017-08-05] MEDS: Ondansetron HCl/PF 4 MG/2 ML Vial IVP PRN (07:53)
--- NOTE | 2017-08-05 08:17 | PDOC.PN ---
- Subjective Encounter Start Date: 08/05/17 Encounter Start Time: 08:14 Subjective: Mild labored breathing -: No fevers overnight -: Afib overnight - Objective Resuscitation Status: Resuscitation Status DNR:Do Not Resuscitate MAR Reviewed: Yes Vital Signs & Weight: Vital Signs (12 hours) Temp Pulse Resp BP Pulse Ox 08/05/17 05:43 160/82 H 08/05/17 04:40 168/88 H 08/05/17 03:39 98.4 F 102 H 36 H 178/94 H 95 08/05/17 01:51 192/91 H 08/05/17 00:21 96 08/04/17 23:26 98.7 F 99 32 H 156/91 H 95 08/04/17 20:43 98.6 F 103 H 42 H 148/86 H 93 L Most Recent Monitor Data Heart Rate from ECG 98 NIBP 141/75 NIBP BP-Mean 86 Respiration from ECG 19 SpO2 93 I&O: 08/04/17 08/05/17 08/06/17 06:59 06:59 06:59 Intake Total 3320 1369 2182 Output Total 1000 790 Balance 2320 579 2182 Result Diagrams: 08/04/17 08:24 08/04/17 08:24 Phys Exam - Physical Examination Constitutional: NAD Neck: no nodes, supple diminished at bases Cardiovascular: RRR, no significant murmur Gastrointestinal: soft, non-tender, positive bowel sounds Deviation from normal: unable to asses Skin: normal turgor, cap refill <2 seconds Dx/Plan (1) Afib Code(s): I48.91 - UNSPECIFIED ATRIAL FIBRILLATION Status: Acute (2) Hypotension Status: Acute Qualifiers: Hypotension type: unspecified hypotension type Qualified Code(s): I95.9 - Hypotension, unspecified (3) poor functional status Status: Acute Comment: is bed bound (4) FTT (failure to thrive) in adult Status: Chronic (5) Sepsis Code(s): A41.9 - SEPSIS, UNSPECIFIED ORGANISM Status: Suspected Qualifiers: Sepsis type: sepsis due to unspecified organism Qualified Code(s): A41.9 - Sepsis, unspecified organism (6) GI bleed Code(s): K92.2 - GASTROINTESTINAL HEMORRHAGE, UNSPECIFIED Status: Resolved Qualifiers: GI bleed type/associated pathology: gastric ulcer Qualified Code(s): K25.4 - Chronic or unspecified gastric ulcer with hemorrhage - Plan Nausea and Vomiting/Hematemesis with Afib with RVR and possible sepsis * GI consulted * Cardiology consulted - continue cardizem gtt * Urine cx: pending * Blood cxs: NGTD * Emperic Abx: Vanco and Meropenem * prn antiemetics * check labs in AM Goals of Care * DNR * Will consult palliative care Dysphagia and FTT 2/2 h/o CVA * hold PEG tube feedings until GI sees pt Dyspnea * stop IVFs * hold TF's * check CXR * oxygen via nc prn Dispo: Continue inpt
[2017-08-05] MEDS: Pantoprazole 40 MG VIAL IVP SCH ×2 (08:54→21:24)
[2017-08-05] MEDS: Enoxaparin Sodium 80 MG/0.8 ML SYRINGE SC SCH ×2 (08:57→21:25)
[2017-08-05] MEDS ORDERED: Enoxaparin Sodium 40 MG/0.4 ML SYRINGE SC SCH (09:00)
[2017-08-05 09:47] LABS: #Lymphocytes 0.7 thou/uL (1.20-3.40); #Neutrophils 5.7 thou/uL (1.40-6.50); %Basophils 0.1 % (0.0-1.0); %Eosinophils 0.5 % (0.0-10.0); %Lymphocytes 9.3 % (21.0-51.0); Hematocrit 40.3 % (42.0-52.0); Mean Platelet Volume 9.4 fL (7.4-10.4); Red Blood Cell (RBC) Count 4.77 mill/uL (4.70-6.10); White Blood Cell (WBC) Count 7.4 thou/uL (4.8-10.8)
[2017-08-05 10:09] LABS: ALT (SGPT) 33 U/L (8-55); AST (SGOT) 119 U/L (5-34); Alkaline Phosphatase 119 U/L (40-150); Anion Gap 13 mmol/L (10-20); BUN (Urea Nitrogen) 20 mg/dL (8.4-25.7); Bilirubin, Total 0.5 mg/dL (0.2-1.2); Calc. Creatinine Clearance 91 mL/min (70-130); Calcium 8.7 mg/dL (7.8-10.44); Carbon Dioxide 19 mmol/L (23-31); Chloride 112 mmol/L (98-107); Estimated GFR-MDRD 85; Globulin 4.3 g/dL (2.4-3.5); Protein, Total 7.2 g/dL (5.8-8.1)
--- NOTE | 2017-08-05 10:22 | RAD ---
PORTABLE CHEST: Date: 08/05/17 COMPARISON: 08/03/17. HISTORY: Shortness of breath. FINDINGS: Since the 08/03/17 exam, there has been development of nonspecific pulmonary parenchymal opacity in bilateral perihilar regions and both lung bases, left greater than right. There is also blunting of bilateral costophrenic angles, new. No pneumothorax. Heart and mediastinal contours are stable. IMPRESSION: Interval development of pleural and parenchymal opacity suggests pulmonary edema and/or multifocal i nfectious pneumonitis. Follow-up to resolution advised. POS: [facility]
[2017-08-05] MEDS ORDERED: Furosemide 40 MG/4 ML VIAL SLOW IVP SCH (12:15)
--- NOTE | 2017-08-05 18:56 | CON ---
DATE OF CONSULTATION: 08/05/2017 SERVICE: Pulmonary Medicine. REASON FOR CONSULTATION: Respiratory failure. HISTORY OF PRESENT ILLNESS: The patient is a 62-year-old -[place] male who is a DNI/DNR. Rodney murillo was in his usual state of health until he presented to the hospital on 08/02/2017 with hematemesis and abdominal distention. Ultimately, anticoagulation was held and he was placed on a PPI. During the course of the hospital stay, he was getting some IV fluids and tube feeds for protracted course . He got a little bit volume overloaded. He was brought down to the ICU fairly urgently yesterday. But that being said, he was gotten back out almost immediately and after one dose of Lasix, improv ed some of his difficulty with breathing. On the floor, he continued to get some IV water. He deve loped increasing respiratory distress once again. He was given a dose of Lasix and he is already st arting to feel a little bit better. He was brought to the intermediate care unit because he was mad e a DNI/DNR yesterday. He cannot provide really much in the way of the history. He has expressive aphasia. He has known oropharyngeal dysphagia which is fairly extensive. He requires PEG tube feed s. PAST MEDICAL HISTORY: 1. 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 2. Aphasia and dysphagia associated with the stroke. 3. Hypertension. 4. Gastroesophageal reflux disease. PAST SURGICAL HISTORY: 1. PEG tube placement. 2. Tracheostomy placement with subsequent removal. ALLERGIES: No known drug allergies. MEDICATIONS: List of his inpatient medications was reviewed. Multiple updates were made. FAMILY HISTORY: Noncontributory. SOCIAL HISTORY: The patient is a resident of [facility]. He has no access to alcoh ol, tobacco or illicit drugs. He requires 100% total care. REVIEW OF SYSTEMS: This could not be obtained as the patient is chronically aphasic. PHYSICAL EXAMINATION: VITAL SIGNS: T-max 100.6, pulse 100, blood pressure 117/80, respirations 24, saturation 99% on 2 li ters nasal cannula. GENERAL: The patient is awake and alert. He is in mild respiratory distress. HEART: Normal rate. Regular. ABDOMEN: Soft, nontender, nondistended, bowel sounds positive. LUNGS: Decent air entry. There are crackles throughout the left base. This is much more extensive on the left as compared to the right. I do not appreciate any rhonchi. He takes very shallow christiano ths. MUSCULOSKELETAL: No cyanosis or clubbing. Trace pitting in the bilateral lower extremities. GENITOURINARY: Yusuf catheter in place. LABORATORY DATA: WBC 7.4, hemoglobin 13.4, platelets 184,000. Neutrophil count is 76%. Yesterday, he had a 12% band count. INR 1.1. Potassium 5.2, but otherwise, a basic metabolic profile is esse ntially unremarkable. Liver function studies are unremarkable. BNP 511. Cortisol is 14.6. Urinal ysis is unremarkable. Blood cultures x2, urine culture, stool studies are all unremarkable. IMAGIN. CT of the chest, abdomen, and pelvis on the 08/04/2017 demonstrates minimal bilateral pleural ef fusions without acute intrathoracic abnormality. There is no evidence of acute intraabdominal or pe lvic abnormality. Constipation is evident. There is atelectasis of majority of the right lower lob e. There is some minimal atelectasis in the left lower lobe as well. 2. Ultrasound of the bilateral lower extremities demonstrates evidence of a DVT in the left leg. ASSESSMENT: 1. Acute hypoxic respiratory failure. 2. Atelectasis of the right lower lobe. 3. Volume overload, mild. 4. Sepsis. 5. Healthcare-associated pneumonia, possible. PLAN: We will continue the empiric antibiotics with vancomycin and meropenem for the time being. W e will watch his volume status closely and intermittently give him doses of Lasix. IV fluids will b e discontinued. Tube feeds will be resumed as soon as we know the patient will not require intubati on. We have talked to Gastroenterology and they are suggesting at this point, there is no requireme nt to keep the patient from having anticoagulation as the ulcer that is in his stomach is quite smal l and was at lower risk for re-bleeding. Pulmonary Critical Care will continue to follow while the patient remains in this location.
--- NOTE | 2017-08-05 20:29 | PRG ---
DATE OF SERVICE: 08/05/2017 SUBJECTIVE: Mr. Husain today had issues while on temperature monitoring. He had increased shortn ess of breath and hypoxia. He was transferred to [facility]. Upon my interview, he appears more stable. PHYSICAL EXAMINATION: VITAL SIGNS: Blood pressure 115/82, pulse 99, temperature 99. LUNGS: Clear to auscultation. HEART: Irregularly irregular. ABDOMEN: Soft, nontender, nondistended. EXTREMITIES: No edema. Left-sided weakness present. PERTINENT LABORATORY DATA: Hemoglobin 13.4. IMPRESSION: 1. Atrial fibrillation with rapid ventricular response. 2. Left-sided deep venous thrombosis. 3. Hematemesis with duodenal ulcer. 4. Hypoxia. RECOMMENDATIONS: I discussed the case with Dr. Juancho Quinn. It does not appear Mr. Husain had a contraindication to anticoagulation therapy. I discussed the case with Dr. Jalen Duggan wh jeanne feels the ulcer was small and not actively bleeding. We would continue with Lovenox in the short term and make sure he does not bleed. If he has recurrent bleeding, may consider IVC filter for DVT , but would certainly not protect him from a CVA.
[2017-08-05] MEDS: Acetaminophen 650 MG/20.3 ML UDCUP PER TUBE PRN (21:36)
[2017-08-05 23:19] LABS: Vancomycin, Trough 29.9 ug/mL
[2017-08-06 04:59] LABS: Anion Gap 10 mmol/L (10-20); BUN (Urea Nitrogen) 20 mg/dL (8.4-25.7); Calc. Creatinine Clearance 84 mL/min (70-130); Calcium 8.6 mg/dL (7.8-10.44); Carbon Dioxide 26 mmol/L (23-31); Chloride 109 mmol/L (98-107); Estimated GFR-MDRD 72; Magnesium 1.6 mg/dL (1.6-2.6)
[2017-08-06 05:22] LABS: Band 9 % (5-11); Hematocrit 37.1 % (42.0-52.0); Mean Platelet Volume 9.2 fL (7.4-10.4); Neutrophil 61 % (42-75); Reactive Lymphocytes 2 % (0-10); Red Blood Cell (RBC) Count 4.42 mill/uL (4.70-6.10); Target Cells SLIGHT = 2-5 cells (100X) (0-1/hpf); White Blood Cell (WBC) Count 6.4 thou/uL (4.8-10.8)
[2017-08-06] MEDS: Meropenem 1 GM in Sodium Chloride 0.9% 100 ML IVPB SCH ×3 (05:37→22:36)
[2017-08-06] MEDS: Enoxaparin Sodium 80 MG/0.8 ML SYRINGE SC SCH ×2 (08:59→21:54)
[2017-08-06] MEDS ORDERED: Furosemide 40 MG/4 ML VIAL SLOW IVP SCH (09:00)
[2017-08-06] MEDS: Sodium Chloride 0.9% 1,000 ML IV SCH ×2 (09:00→21:53)
[2017-08-06] MEDS: Pantoprazole 40 MG VIAL IVP SCH ×2 (09:00→21:55)
--- NOTE | 2017-08-06 09:07 | PDOC.PN ---
- Subjective Encounter Start Date: 08/06/17 Encounter Start Time: 09:05 Subjective: Nonverbal -: No agitation -: No labored breathing - Objective Resuscitation Status: Resuscitation Status DNR:Do Not Resuscitate MAR Reviewed: Yes Vital Signs & Weight: Vital Signs (12 hours) Temp Pulse Resp BP Pulse Ox 08/06/17 08:05 99.0 F 102 H 20 98/69 93 L 08/06/17 07:05 99 08/06/17 07:03 102 H 18 99 08/06/17 04:21 99.2 F 97 19 90/56 L 100 08/06/17 00:19 104 H 20 100 08/05/17 23:28 100.0 F H 105 H 21 H 91/60 100 Weight Weight 210 lb 12.8 oz Most Recent Monitor Data Heart Rate from ECG 98 NIBP 141/75 NIBP BP-Mean 86 Respiration from ECG 19 SpO2 93 I&O: 08/05/17 08/06/17 08/07/17 06:59 06:59 06:59 Intake Total 1369 3157 Output Total 790 2575 Balance 579 582 Result Diagrams: 08/06/17 03:58 08/06/17 03:58 Phys Exam - Physical Examination Constitutional: NAD HEENT: moist MMs, sclera anicteric Neck: no nodes, no JVD Respiratory: no wheezing diminished at bases Cardiovascular: no significant murmur, irregular rate-controlled Gastrointestinal: soft, non-tender, positive bowel sounds Deviation from normal: unable to assess Skin: no rash, normal turgor Dx/Plan (1) Afib Code(s): I48.91 - UNSPECIFIED ATRIAL FIBRILLATION Status: Acute (2) Hypotension Status: Acute Qualifiers: Hypotension type: unspecified hypotension type Qualified Code(s): I95.9 - Hypotension, unspecified (3) poor functional status Status: Acute Comment: is bed bound (4) FTT (failure to thrive) in adult Status: Chronic (5) Sepsis Code(s): A41.9 - SEPSIS, UNSPECIFIED ORGANISM Status: Suspected Qualifiers: Sepsis type: sepsis due to unspecified organism Qualified Code(s): A41.9 - Sepsis, unspecified organism (6) GI bleed Code(s): K92.2 - GASTROINTESTINAL HEMORRHAGE, UNSPECIFIED Status: Resolved Qualifiers: GI bleed type/associated pathology: gastric ulcer Qualified Code(s): K25.4 - Chronic or unspecified gastric ulcer with hemorrhage - Plan Nausea and Vomiting/Hematemesis 2/2 duodenal ulcer (small - low risk of bleeding per GI) with Afib with RVR and possible sepsis * GI consulted * Cardiology consulted - continue anticoagulation and cardizem gtt * Urine cx: NGTD * Blood cxs: NGTD * Emperic Abx: Vanco and Meropenem * prn antiemetics * check labs in AM Goals of Care * DNR * palliative care consulted Dysphagia and FTT 2/2 h/o CVA * hold PEG tube feedings Dyspnea 2/2 Fluid overload and HCAP * stopped IVFs * holding TF's * Abx as above * oxygen via nc prn Dispo: Continue ICU care.
--- NOTE | 2017-08-06 11:56 | PRG ---
DATE OF SERVICE: 08/06/2017 SERVICE: Pulmonary Medicine. INTERVAL HISTORY: The patient is doing fine from a respiratory standpoint. He is breathing comfort ably. He indicates not have any chest discomfort or dyspnea. There were no overnight events. PHYSICAL EXAMINATION: VITAL SIGNS: Afebrile with a T-max of 100.1 overnight, pulse 102, blood pressure 98/69, respiration s 20, saturation 93% on 3 liters nasal cannula. GENERAL: Patient is awake, alert, in no apparent distress. LUNGS: Rhonchi and crackles are present. No prolonged expiratory phase, wheezing is appreciated. HEART: Normal rate, regular. ABDOMEN: Soft, nontender, and nondistended. Bowel sounds positive. MUSCULOSKELETAL: No cyanosis or clubbing. There is 1+ pitting throughout. GENITOURINARY: Yusuf catheter in place. LABORATORY DATA: WBC 6.4, hemoglobin 12.3, platelets 178,000. Band count has dropped to 9%. Basic metabolic profile and magnesium fall within normal limits. Sodium is up trending to 141. Creatini ne 1.23. Bicarb has abruptly increased to 26. Stool cultures are negative to date as are blood cul tures x2 and urine culture. ASSESSMENT: 1. Acute hypoxic respiratory failure. 2. Atelectasis of right lower lobe. 3. Volume overload, resolved. 4. Sepsis. 5. Healthcare-associated pneumonia. PLAN: We will continue antibiotics. These can be discontinued after 7 days. Pulmonary or Critical Care will continue to follow while he remains in the IMCU. Ultimately, he will require repeat imag ing in roughly 6 weeks to make certain his infiltrate resolves. Anticoagulation is indicated for th e DVT. Pulmonary or Critical Care will follow while he remains in this location, but he is stable f or transition back to the floor.
[2017-08-06 12:26] LABS: Vancomycin, Random 19.4 ug/mL (See Comment)
[2017-08-06] MEDS: Vancomycin HCl 1 GM in Premix Bag 1 BAG IVPB SCH (14:35)
--- NOTE | 2017-08-06 17:18 | PRG ---
DATE OF SERVICE: 08/06/2017 SUBJECTIVE: Mr. Husain's status is unchanged. He has converted back to sinus rhythm. PHYSICAL EXAMINATION: VITAL SIGNS: Blood pressure 107/82, pulse 94, temperature 99.6. LUNGS: Clear to auscultation. HEART: Regular rate and rhythm. ABDOMEN: Soft, nontender, and nondistended. EXTREMITIES: No edema. NEUROLOGIC: Left-sided weakness. PERTINENT LABORATORY DATA: Hemoglobin 12.3 and creatinine 1.23. IMPRESSION: 1. Atrial fibrillation, now resolved. 2. Recent hypoxia with atelectasis. 3. Sepsis. 4. Pneumonia. RECOMMENDATIONS: From a CV standpoint, he is stable. He is back in sinus rhythm. He will likely n eed to continue anticoagulation therapy for recent DVT. There are no contraindications to anticoagu lation therapy. We will discontinue IV Cardizem and add p.o. beta nely therapy.
[2017-08-06] MEDS: Ondansetron HCl/PF 4 MG/2 ML Vial IVP PRN (19:22)
[2017-08-06] MEDS: Acetaminophen 650 MG/20.3 ML UDCUP PER TUBE PRN (19:28)
[2017-08-06] MEDS ORDERED: Metoprolol Tartrate 25 MG TAB PO SCH (21:00)
[2017-08-07] MEDS: Vancomycin HCl 1 GM in Premix Bag 1 BAG IVPB SCH ×2 (02:52→14:53)
[2017-08-07 05:24] LABS: Anion Gap 7 mmol/L (10-20); BUN (Urea Nitrogen) 24 mg/dL (8.4-25.7); Calc. Creatinine Clearance 73 mL/min (70-130); Calcium 8.9 mg/dL (7.8-10.44); Carbon Dioxide 28 mmol/L (23-31); Chloride 110 mmol/L (98-107); Estimated GFR-MDRD 61; Magnesium 1.7 mg/dL (1.6-2.6)
[2017-08-07 05:50] LABS: Band 9 % (5-11); Hematocrit 37.9 % (42.0-52.0); Mean Platelet Volume 9.4 fL (7.4-10.4); Neutrophil 70 % (42-75); Red Blood Cell (RBC) Count 4.48 mill/uL (4.70-6.10); White Blood Cell (WBC) Count 6.6 thou/uL (4.8-10.8)
[2017-08-07] MEDS: Meropenem 1 GM in Sodium Chloride 0.9% 100 ML IVPB SCH ×3 (05:58→22:13)
[2017-08-07] MEDS: Acetaminophen 650 MG/20.3 ML UDCUP PER TUBE PRN (06:04)
--- NOTE | 2017-08-07 06:38 | PRG ---
DATE OF SERVICE: 08/06/2017 SUBJECTIVE: This is a 62-year-old -French male status post cerebrovascular accident, aphas ia, status post PEG tube placement. The patient was hospitalized last week because of vomiting coff ee-ground material in the assisted. His admitting H\T\H was normal. He had a CBC done the foll owing day again remains stable. He had an EGD done last week. The EGD showed linear ulcer in the p roximal gastric stomach and gastritis. Otherwise, the exam was unremarkable. I did sign off after that EGD. Apparently, he developed some nausea and vomiting. He has been seem by Pulmonology [facility] of hypoxic respiratory failure, pneumonia, etc. The G-tube has been withheld. His abdomen is ac tually soft and nondistended, it is nontender. His vital signs are stable. The G-tube feeding was around 30 mL per hour this afternoon. He is tolerating tube feeding without any nausea or vomiting. RECOMMENDATIONS: Increase tube feeding slowly. If the patient had recurrence of nausea and vomitin g, may add Reglan and possibly consider a small bowel series through the G-tube.
--- NOTE | 2017-08-07 08:50 | PDOC.PN ---
- Subjective Encounter Start Date: 08/07/17 Encounter Start Time: 08:48 - Objective Resuscitation Status: Resuscitation Status DNR:Do Not Resuscitate MAR Reviewed: Yes Vital Signs & Weight: Vital Signs (12 hours) Temp Pulse Resp BP Pulse Ox 08/07/17 08:00 99.7 F H 109 H 30 H 106/65 97 08/07/17 06:15 96 08/07/17 06:13 106 H 22 H 96 08/07/17 03:22 100.1 F H 100 20 106/68 100 08/07/17 00:38 99 08/07/17 00:12 99.2 F 95 21 H 88/68 L 99 Weight Admit Weight 198 lb 6.656 oz Weight 212 lb 3.2 oz Most Recent Monitor Data Heart Rate from ECG 98 NIBP 141/75 NIBP BP-Mean 86 Respiration from ECG 19 SpO2 93 I&O: 08/06/17 08/07/17 08/08/17 06:59 06:59 06:59 Intake Total 3157 1300 Output Total 2575 1875 Balance 582 -575 Result Diagrams: 08/07/17 04:38 08/07/17 04:38 Dx/Plan (1) Afib Code(s): I48.91 - UNSPECIFIED ATRIAL FIBRILLATION Status: Acute (2) Hypotension Status: Acute Qualifiers: Hypotension type: unspecified hypotension type Qualified Code(s): I95.9 - Hypotension, unspecified (3) poor functional status Status: Acute Comment: is bed bound (4) FTT (failure to thrive) in adult Status: Chronic (5) Sepsis Code(s): A41.9 - SEPSIS, UNSPECIFIED ORGANISM Status: Suspected Qualifiers: Sepsis type: sepsis due to unspecified organism Qualified Code(s): A41.9 - Sepsis, unspecified organism (6) GI bleed Code(s): K92.2 - GASTROINTESTINAL HEMORRHAGE, UNSPECIFIED Status: Resolved Qualifiers: GI bleed type/associated pathology: gastric ulcer Qualified Code(s): K25.4 - Chronic or unspecified gastric ulcer with hemorrhage - Plan Nausea and Vomiting/Hematemesis 2/2 duodenal ulcer (small - low risk of bleeding per GI) with Afib with RVR and possible sepsis * GI consulted * Cardiology consulted - continue anticoagulation and cardizem gtt * Urine cx: NGTD * Blood cxs: NGTD * Emperic Abx: Vanco and Meropenem * prn antiemetics * check labs in AM Goals of Care * DNR * palliative care consulted Dysphagia and FTT 2/2 h/o CVA * holding PEG tube feedings Dyspnea 2/2 Fluid overload and HCAP * stopped IVFs * holding TF's * Abx as above * oxygen via nc prn Acute Hypoxemic Respiratory Failure * appreciate pulm input JUAN DAVID * stop IV lasix * avoid nephrotoxic agents * check renal labs in AM Dispo: Continue ICU care.
[2017-08-07] MEDS: Sodium Chloride 0.9% 1,000 ML IV SCH ×3 (08:59→22:13)
[2017-08-07] MEDS: Enoxaparin Sodium 80 MG/0.8 ML SYRINGE SC SCH ×2 (09:00→22:45)
[2017-08-07] MEDS: Pantoprazole 40 MG VIAL IVP SCH ×2 (09:01→22:13)
[2017-08-07] MEDS: Metoprolol Tartrate 50 MG TAB PO SCH ×2 (09:05→21:04)
[2017-08-07] MEDS ORDERED: Sodium Chloride 0.9% 1,000 ML IV SCH (13:30)
--- NOTE | 2017-08-07 18:19 | PRG ---
DATE OF SERVICE: 08/07/2017 SUBJECTIVE: Mr. Husain's status is unchanged. His heart rate continues to be stable. He is in s inus rhythm. OBJECTIVE: VITAL SIGNS: Blood pressure 106/65, pulse 109, temperature 97.9. LUNGS: Clear to auscultation. CARDIAC: Regular rate and rhythm. ABDOMEN: Soft, nontender, nondistended. EXTREMITIES: No edema. IMPRESSION: 1. Atrial fibrillation, now in sinus rhythm. 2. Pneumonia. 3. Previous cerebrovascular accident. RECOMMENDATIONS: 1. Increase Lopressor to 50 b.i.d. 2. Antibiotic therapy. 3. Placement.
--- NOTE | 2017-08-07 18:25 | RAD ---
PORTABLE CHEST: 08/07/17 HISTORY: Respiratory distress. COMPARISON: 08/05/17 Cardiomegaly. Evidence of vascular congestion. Bibasilar atelectasis and bilateral effusions. Infilt rates cannot be excluded. Poor overall inspiration. IMPRESSION: Cardiomegaly with vascular congestion, perihilar infiltrates or edema, and bilateral effusions. POS: [facility]
--- NOTE | 2017-08-07 21:31 | PRG ---
DATE OF SERVICE: 08/07/2017 HOSPITALIST VISIT NOTE SUBJECTIVE: This is a 62-year-old unfortunate black male with status post CVA, aphasia, status post PEG tube placement. The patient also has had aspiration pneumonia. The patient has been having na usea and vomiting. The tube feeding was held for several hours; he had one tube feeding yesterday. He is getting a very slow rate of 30 mL per hour. He had no gastric residue. He is nonverbal, but does try to nod his head. He denies abdominal pain. Denies any nausea or vomiting today. He soun ds congested with what is most likely stridor. He is slightly shortwinded. OBJECTIVE: VITAL SIGNS: He is afebrile. His pulse is 109, blood pressure is 87/60. CARDIOVASCULAR: First and second heart sounds normal. LUNGS: Vesicular breath sounds. Occasional rhonchi. ABDOMEN: Soft and nontender. LABORATORY DATA: The lab data from today WBC 6600, hemoglobin is 12.3, hematocrit 37.9. Chemistrie s are normal. His BUN is 24, creatinine is 1.42, glucose 149. RECOMMENDATIONS: I will leave the tube feeding at lower rate of 30 mL per hour today. We will obse rve over the next 24 hours. If he has no nausea or vomiting, consider increasing the tube feeding t o 45 mL per hour from tomorrow.
--- NOTE | 2017-08-07 22:51 | CT ---
CT ABDOMEN AND PELVIS WITHOUT CONTRAST 08/07/17 HISTORY: Abdominal distention. FINDINGS: Comparison is made with exam of 08/04/17. Absence of oral and IV contrast reduces the sensitivity of the exam, particularly for evaluation of solid organs and bowel. A tiny left and a small right pleural effusions are seen with adjacent infiltrate/atelectatic change s. A PEG tube is present in the stomach. No free air is seen. There is a small amount of free fluid in the abdomen and pelvis. There is suggestion of tiny calcified gallstones. No calculi is seen in t he kidneys, ureters, or the urinary bladder. No hydroureteronephrosis is noted on either side. There has been interval placement of a Yusuf catheter in the urinary bladder with some intraluminal air. There is sigmoid diverticulosis. There is fecal material in the colon. There is continued inflammato ry change in the subcutaneous fat of the lateral abdominal wall also noted on the previous study. Th ere are degenerative changes in the lumbar spine. IMPRESSION: 1. Bilateral small pleural effusions, right larger than left with adjacent infiltrate/atelectat ic changes. 2. Probable cholelithiasis. 3. No CT evidence of urinary tract calculi or obstruction. 4. Sigmoid diverticulosis. 5. Small amount of free fluid in the abdomen and pelvis. POS: [facility]
[2017-08-08 01:25] LABS: Vancomycin, Trough 40.2 ug/mL
[2017-08-08] MEDS ORDERED: Sodium Chloride 0.9% 300 ML IV SCH (02:15)
[2017-08-08 06:07] LABS: #Basophils 0.1 thou/uL (0.0-0.2); #Eosinphils 0.4 thou/uL (0.0-0.7); #Lymphocytes 1.7 thou/uL (1.20-3.40); #Monocytes 1.2 thou/uL (0.11-0.59); %Basophils 0.9 % (0.0-1.0); %Eosinophils 4.8 % (0.0-10.0); %Lymphocytes 20.5 % (21.0-51.0); %Monocytes 13.8 % (0.0-10.0); Hematocrit 37.1 % (42.0-52.0); Mean Platelet Volume 9.6 fL (7.4-10.4); Red Blood Cell (RBC) Count 4.37 mill/uL (4.70-6.10); White Blood Cell (WBC) Count 8.4 thou/uL (4.8-10.8)
[2017-08-08] MEDS: Meropenem 1 GM in Sodium Chloride 0.9% 100 ML IVPB SCH (06:07)
[2017-08-08 06:38] LABS: Anion Gap 13 mmol/L (10-20); BUN (Urea Nitrogen) 36 mg/dL (8.4-25.7); Calc. Creatinine Clearance 49 mL/min (70-130); Calcium 9.1 mg/dL (7.8-10.44); Carbon Dioxide 27 mmol/L (23-31); Chloride 108 mmol/L (98-107); Estimated GFR-MDRD 39
[2017-08-08 07:26] LABS: Troponin I 22.536 ng/mL (< 0.028)
[2017-08-08] MEDS: Pantoprazole 40 MG VIAL IVP SCH ×2 (08:43→20:41)
[2017-08-08] MEDS: Enoxaparin Sodium 80 MG/0.8 ML SYRINGE SC SCH ×2 (08:43→20:42)
--- NOTE | 2017-08-08 09:24 | PDOC.PN ---
- Subjective Encounter Start Date: 08/08/17 Encounter Start Time: 09:19 Subjective: Awake -: Nonverbal -: No agitation currently - Objective Resuscitation Status: Resuscitation Status DNR:Do Not Resuscitate Vital Signs & Weight: Vital Signs (12 hours) Temp Pulse Resp BP Pulse Ox 08/08/17 07:37 97 08/08/17 07:35 97 32 H 97 08/08/17 07:10 98.6 F 100 20 88/66 L 100 08/08/17 03:00 98.7 F 98 24 H 90/61 100 08/08/17 01:00 98.8 F 97 26 H 83/59 L 97 08/08/17 00:16 96 22 H 98 Weight Admit Weight 198 lb 6.656 oz Weight 228 lb 12.8 oz Most Recent Monitor Data Heart Rate from ECG 98 NIBP 141/75 NIBP BP-Mean 86 Respiration from ECG 19 SpO2 93 I&O: 08/07/17 08/08/17 08/09/17 06:59 06:59 06:59 Intake Total 1300 4193 Output Total 1875 175 Balance -575 4018 Result Diagrams: 08/08/17 04:38 08/08/17 04:38 Phys Exam - Physical Examination Constitutional: NAD HEENT: moist MMs, sclera anicteric Neck: no nodes, no JVD b/l coarse Cardiovascular: no significant murmur, no rub Gastrointestinal: soft, non-tender, positive bowel sounds Musculoskeletal: pulses present Deviation from normal: unable to assess Dx/Plan (1) Afib Code(s): I48.91 - UNSPECIFIED ATRIAL FIBRILLATION Status: Acute (2) Hypotension Status: Acute Qualifiers: Hypotension type: unspecified hypotension type Qualified Code(s): I95.9 - Hypotension, unspecified (3) poor functional status Status: Acute Comment: is bed bound (4) FTT (failure to thrive) in adult Status: Chronic (5) Sepsis Code(s): A41.9 - SEPSIS, UNSPECIFIED ORGANISM Status: Suspected Qualifiers: Sepsis type: sepsis due to unspecified organism Qualified Code(s): A41.9 - Sepsis, unspecified organism (6) GI bleed Code(s): K92.2 - GASTROINTESTINAL HEMORRHAGE, UNSPECIFIED Status: Resolved Qualifiers: GI bleed type/associated pathology: gastric ulcer Qualified Code(s): K25.4 - Chronic or unspecified gastric ulcer with hemorrhage - Plan Nausea and Vomiting/Hematemesis 2/2 duodenal ulcer (small - low risk of bleeding per GI) with Afib with RVR and possible sepsis * GI consulted * Cardiology consulted - now with grossly elevated troponin * Urine cx: NGTD * Blood cxs: NGTD * Emperic Abx: Vanco and Meropenem * prn antiemetics * check labs in AM Goals of Care * DNR - OOH DNR signed on physical chart today * palliative care consulted Dysphagia and FTT 2/2 h/o CVA * TFs via PEG tube Dyspnea 2/2 Fluid overload and HCAP * Abx as above * oxygen via nc prn Acute Hypoxemic Respiratory Failure * appreciate pulm input JUAN DAVID likely 2/2 hypotension * will consult nephrology * avoid nephrotoxic agents * check renal labs in AM Dispo: Continue ICU care. Poor prognosis.
--- NOTE | 2017-08-08 09:46 | PRG ---
DATE OF SERVICE: 08/07/2017 SERVICE: Pulmonary Medicine. INTERVAL HISTORY: The patient is doing well from a respiratory standpoint. He denies any chest bhavna n or shortness of breath. Otherwise, he has a difficult time providing any additional elements of t he history. He had no events overnight. PHYSICAL EXAMINATION: VITAL SIGNS: Afebrile with a T-max of 100.3. Pulse 86, blood pressure 85/62, respirations 19, satu ration 97% on 2 liters nasal cannula. GENERAL: The patient is awake and alert. He has no apparent distress, but a little bit more tachyp neic today than prior. HEART: Normal rate, regular. ABDOMEN: Soft, nontender, nondistended. Bowel sounds are positive. MUSCULOSKELETAL: No cyanosis or clubbing. No pitting in the bilateral lower extremities. NEUROLOGIC: Grossly nonfocal. LABORATORY DATA: WBC 6.6, hemoglobin 12.3, platelets 202,000. Creatinine 1.42, glucose 149. Magne sium 1.7. Basic metabolic profile is, otherwise, unremarkable. Cultures are unremarkable today. IMAGING: Chest x-ray demonstrates cardiomegaly with vascular congestion and perihilar infiltrates s uggestive of pulmonary edema. There are bilateral pleural effusions present. ASSESSMENT: 1. Acute hypoxic respiratory failure. 2. Atelectasis of the right lower lobe. 3. Volume overload, improving. 4. Severe sepsis. 5. Healthcare-associated pneumonia. 6. Deep vein thrombosis. PLAN: Antibiotics can be discontinued after a total duration of 7 days. We will continue on antico agulation. He will remain in the IMCU for the time being. I will continue to follow while we marc nue our supportive care.
[2017-08-08] MEDS: Sodium Chloride 0.9% 1,000 ML IV SCH (11:06)
[2017-08-08 11:15] LABS: Troponin I 18.716 ng/mL (< 0.028)
[2017-08-08] MEDS: Sodium Chloride 0.45% 1,000 ML IV SCH (13:07)
[2017-08-08 13:22] LABS: Critical Call Chem Troponin I RESULT DECREASING; Troponin I 16.837 ng/mL (< 0.028)
[2017-08-08] MEDS: Meropenem 1 GM, Admixture Fee 1 EACH in Sodium Chloride 0.9% 100 ML IVPB SCH ×2 (14:32→20:41)
[2017-08-08] MEDS: Vancomycin HCl 1 GM in Premix Bag 1 BAG IVPB SCH (14:33)
--- NOTE | 2017-08-08 14:57 | EKG ---
Test Reason : Blood Pressure : / mmHG Vent. Rate : 101 BPM Atrial Rate : 101 BPM P-R Int : 142 ms QRS Dur : 082 ms QT Int : 304 ms P-R-T Axes : 049 -15 052 degrees QTc Int : 394 ms Sinus tachycardia Low voltage QRS Inferior infarct (cited on or before 24-JUN-2017) Abnormal ECG Confirmed by DENISE FONG ([id number]) on 08/08/2017 2:57:14 PM Referred By: MICHAEL Confirmed By:DENISE FONG
--- NOTE | 2017-08-08 14:59 | PRG ---
DATE OF SERVICE: 08/08/2017 SERVICE: Pulmonary Medicine. INTERVAL HISTORY: The patient is doing very poorly this morning. He had increasing dyspnea overnig ht. He denies having any specific chest discomfort. Blood pressures were marginal. He ended up ge tting bolus of little bit of fluid and maintenance fluids were started back. He cannot provide much in the way of additional historical elements. Otherwise, there were no events. PHYSICAL EXAMINATION: VITAL SIGNS: Currently afebrile with T-max of 99.4. Pulse 95, blood pressure 95/54, respirations 2 0, saturation 100% on 2-1/2 liters nasal cannula. GENERAL: The patient is awake and alert. He is in moderate respiratory distress. HEENT: Normocephalic, atraumatic. Sclerae are white, conjunctivae pink. Oral and nasal mucosa is moist without lesions. LUNGS: Decent air entry. There is no prolonged expiratory phase. Wheezing is not appreciated, but crackles are predominant throughout. HEART: Normal rate. Regular. ABDOMEN: Soft, nontender, nondistended. Bowel sounds positive. MUSCULOSKELETAL: No cyanosis or clubbing. There is no pitting presently. GENITOURINARY: Yusuf catheter in place. NEUROLOGIC: Grossly nonfocal. LABORATORY DATA: WBC 8.4, hemoglobin 12.1, platelets 233,000. INR 1.1. Troponin is down trending to 16.8. Creatinine 2.11 and significantly increasing, BUN 36. Basic metabolic profile is otherwis e unremarkable. Sodium is up trending to 143. Vancomycin trough is 40.2. IMAGING: CT of the abdomen and pelvis demonstrates bilateral pleural effusions, which is greater on the right. There is adjacent atelectasis. Probable cholelithiasis. No CT evidence of renal calcu li. Sigmoid diverticulosis is present with small amount of free fluid in the belly. ASSESSMENT: 1. Acute hypoxic respiratory failure. 2. Atelectasis of the right lower lobe. 3. Healthcare-associated pneumonia, possible. 4. Acute kidney injury secondary to diuresis, heart failure, and vancomycin toxicity. 5. Severe sepsis. 6. Deep venous thrombosis. DISCUSSION AND PLAN: The patient's family has decided to transition the patient over to comfort car e only. They recognize that he has got multiple comorbidities and are suggesting that his quality o f life really is not to the point where we should be working towards recovering him to his usual sta te of health. As such, this afternoon, we will make the transition to comfort care only and transit ion the patient back to [facility] under the supervision of hospice. If he remains in house, I will continue to follow.
[2017-08-08 15:09] VITALS: BMI 31.0
--- NOTE | 2017-08-08 19:04 | CON ---
DATE OF SERVICE: 08/08/2017 SUBJECTIVE: Mr. Husain again had difficult evening. He had increased shortness of breath. He soliz d a troponin drawn which is 26. This is his first troponin drawn since this hospitalization. He is currently back in sinus rhythm after being in atrial fibrillation with rapid ventricular respo nse overnight. PHYSICAL EXAMINATION: VITAL SIGNS: Blood pressure 89/67, pulse 111, and temperature 98.8. LUNGS: Clear to auscultation. HEART: Regular rate and rhythm. ABDOMEN: Soft, nontender, and nondistended. EXTREMITIES: No edema. IMPRESSION: 1. Non-Q wave myocardial infarction. 2. Atrial fibrillation with rapid ventricular response. 3. Hypoxia. 4. Previous cerebrovascular accident. RECOMMENDATIONS: Family has requested hospice input. They have decided to go [facility]. At this point, continue medical therapy. He is currently on Lovenox. Would add aspirin 81 q.a.m. Would continue metoprolol. Otherwise, no recommendations.
[2017-08-09] MEDS: Acetaminophen 650 MG/20.3 ML UDCUP PER TUBE PRN (00:29)
[2017-08-09] MEDS: Sodium Chloride 0.45% 1,000 ML IV SCH (04:15)
[2017-08-09 04:49] LABS: #Basophils 0.1 thou/uL (0.0-0.2); #Eosinphils 0.5 thou/uL (0.0-0.7); #Lymphocytes 1.3 thou/uL (1.20-3.40); #Monocytes 1.2 thou/uL (0.11-0.59); #Neutrophils 5.6 thou/uL (1.40-6.50); %Basophils 0.6 % (0.0-1.0); %Eosinophils 5.3 % (0.0-10.0); %Lymphocytes 15.4 % (21.0-51.0); %Monocytes 13.5 % (0.0-10.0); Hematocrit 36.6 % (42.0-52.0); Mean Platelet Volume 9.3 fL (7.4-10.4); Red Blood Cell (RBC) Count 4.34 mill/uL (4.70-6.10); White Blood Cell (WBC) Count 8.6 thou/uL (4.8-10.8)
[2017-08-09] MEDS: Meropenem 1 GM, Admixture Fee 1 EACH in Sodium Chloride 0.9% 100 ML IVPB SCH (05:01)
[2017-08-09 05:14] LABS: Anion Gap 10 mmol/L (10-20); BUN (Urea Nitrogen) 47 mg/dL (8.4-25.7); Calc. Creatinine Clearance 56 mL/min (70-130); Calcium 8.9 mg/dL (7.8-10.44); Carbon Dioxide 26 mmol/L (23-31); Chloride 110 mmol/L (98-107); Estimated GFR-MDRD 41; Magnesium 2.3 mg/dL (1.6-2.6)
[2017-08-09] MEDS: Pantoprazole 40 MG VIAL IVP SCH (08:51)
[2017-08-09] MEDS: Enoxaparin Sodium 80 MG/0.8 ML SYRINGE SC SCH (08:51)
--- NOTE | 2017-08-09 11:49 | PDOC.PN ---
- Subjective Encounter Start Date: 08/09/17 Encounter Start Time: 11:47 Patient seen at bedside. No overnight events. - Objective Resuscitation Status: Resuscitation Status DNR:Do Not Resuscitate MAR Reviewed: Yes Vital Signs & Weight: Vital Signs (12 hours) Temp Pulse Resp BP Pulse Ox 08/09/17 11:04 98.8 F 109 H 24 H 108/75 99 08/09/17 07:57 98.6 F 98 20 98 08/09/17 06:54 98.6 F 98 20 93/69 99 08/09/17 06:25 94 24 H 95 08/09/17 04:00 98.3 F 102 H 26 H 97/72 100 08/09/17 00:00 98.6 F 109 H 26 H 95/51 L 97 08/08/17 23:58 87 22 H 93 L Weight Admit Weight 198 lb 6.656 oz Weight 229 lb 1.6 oz Most Recent Monitor Data Heart Rate from ECG 98 NIBP 141/75 NIBP BP-Mean 86 Respiration from ECG 19 SpO2 93 I&O: 08/08/17 08/09/17 08/10/17 06:59 06:59 06:59 Intake Total 4193 3255 30 Output Total 175 300 Balance 4018 2955 30 Result Diagrams: 08/09/17 04:15 08/09/17 04:15 Phys Exam - Physical Examination Constitutional: NAD HEENT: moist MMs Rhonchi b/l Cardiovascular: irregular Gastrointestinal: soft PEG present Musculoskeletal: pulses present Left hemiparesis Deviation from normal: awake, alert, nonverbal Dx/Plan (1) Afib Code(s): I48.91 - UNSPECIFIED ATRIAL FIBRILLATION Status: Acute (2) Hypotension Status: Resolved Qualifiers: Hypotension type: unspecified hypotension type Qualified Code(s): I95.9 - Hypotension, unspecified (3) Dysphagia Code(s): R13.10 - DYSPHAGIA, UNSPECIFIED Status: Chronic Comment: has peg tube (4) H/O: CVA (cerebrovascular accident) Code(s): Z86.73 - PRSNL HX OF TIA (TIA), AND CEREB INFRC W/O RESID DEFICITS Status: Chronic Comment: with 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 * ASA/Metoprolol/ * Lovenox * Will continue Levaquin through PEG * Hema * For Transfer to [facility] with Hospice
--- NOTE | 2017-08-09 12:40 | PRG ---
DATE OF SERVICE: 08/09/2017 SUBJECTIVE: Mr. Husain's status is unchanged. He continues to decline in his status. PHYSICAL EXAMINATION: VITAL SIGNS: Blood pressure 108/75, pulse 109, respirations 20. LUNGS: Crackles bilaterally. CARDIAC: Regular rate and rhythm. ABDOMEN: Soft, nontender, nondistended. EXTREMITIES: No edema. IMPRESSION: 1. Non-Q myocardial infarction. 2. Previous cerebrovascular accident. 3. Paroxysmal atrial fibrillation. RECOMMENDATIONS: Mr. Husain will be moved to inpatient hospice. We would agree. From my standpo int, I have no further recommendations. We will sign off.
--- NOTE | 2017-08-09 13:17 | PRG ---
DATE OF SERVICE: 08/09/2017 SERVICE: Pulmonary Medicine INTERVAL HISTORY: The patient is doing fine from a cardiovascular and respiratory standpoint. He i s breathing comfortably and has no chest discomfort this morning. Otherwise, he is in his usual sta te of health. He is being discharged today under the care of hospice. There were no events otherwi se overnight. PHYSICAL EXAMINATION: VITAL SIGNS: Afebrile, pulse 109, blood pressure 108/75, respirations 24, saturation 99% on 3 liter s nasal cannula. HEENT: Normocephalic, atraumatic. Sclerae are white, conjunctivae pink. Oral and nasal mucosa is moist without lesions. LUNGS: Decent air entry. There are dependent crackles. HEART: Normal rate. Tachycardic. Regular. ABDOMEN: Soft, nontender, nondistended. Bowel sounds positive. MUSCULOSKELETAL: No cyanosis or clubbing. There is trace pitting in the bilateral lower extremitie s. NEUROLOGIC: Grossly nonfocal. LABORATORY DATA: WBC 8.6, hemoglobin 12.0, platelets 263,000. Creatinine 2.01 and roughly stable. Basic metabolic profile is otherwise unremarkable. Troponin is down trending to 16.8. ASSESSMENT: 1. Acute hypoxic respiratory failure. 2. Atelectasis of the right lower lobe. 3. Healthcare-associated pneumonia, possible. 4. Acute kidney injury. 5. Severe sepsis. PLAN: The patient is being discharged home today. He then will pursue comfort care only. is expected within the next 1 week to 1 month. He no longer has inpatient requirements for Pulmonary or Critical Care opinion. As such I will sign off. Please call with additional questions or concer ns.
[2017-08-09 15:34] VITALS: BP 106/70; TEMP 99.2
[2017-08-09] MEDS ORDERED: Metoprolol Tartrate 25 MG TAB PO SCH (21:00)
--- NOTE | 2017-08-10 06:29 | DIS ---
DATE OF ADMISSION: 08/02/2017 DATE OF DISCHARGE: 08/09/2017 DISCHARGE DISPOSITION: To [facility] with transition to hospice care. DISCHARGE DIAGNOSES: 1. Acute respiratory failure. 2. Suspected healthcare-associated pneumonia. 3. Acute kidney injury. 4. Atrial fibrillation. 5. Non-Q-wave myocardial infarction. 6. History of cerebrovascular accident. DISCHARGE MEDICATIONS: 1. Amlodipine 5 mg per tube. 2. Aspirin 81 mg per tube. 3. Vitamin D supplements. 4. Glycopyrrolate 1 mg per tube. 5. Levaquin 750 mg for the next 7 days per tube daily. 6. Metoprolol tartrate 12.5 mg p.o. b.i.d. per tube. 7. Protonix 40 mg p.o. b.i.d. per tube. 8. Potassium chloride 20 mEq per tube. INPATIENT CONSULTATIONS: 1. Dr. Juancho Quinn, Pulmonary Critical Care. 2. Dr. Gabriele Moreno, Gastroenterology. 3. Dr. Ney Nicole, Cardiology. INPATIENT PROCEDURE: EGD, which revealed a hiatal hernia as well as linear gastric ulcer in the pro ximal stomach with gastritis. There was no active bleeding seen. INPATIENT RADIOGRAPHIC EXAMINATIONS: 1. Acute abdominal series which revealed elevation in the right hemidiaphragm with volume loss at [facility] right lung base. There was a moderate amount of retained fecal material seen in that region of [facility] ascending colon. G-tube was in place. 2. CT of the chest, abdomen, and pelvis which revealed minimal bilateral pleural effusions without acute intrathoracic abnormalities. 3. Chest x-ray, which revealed no evidence of acute intrathoracic process. 4. Repeat CT of the abdomen and pelvis, which revealed bilateral small pleural effusions. There wa s probable cholelithiasis with no evidence of urinary tract calculi or obstruction. There was a sma ll amount of free fluid in the abdomen and pelvis. BRIEF HOSPITAL COURSE: Mr. Adiel Husain is a 62-year-old male with a history of prior pontine cere brovascular accident, hypertension, dysphagia requiring PEG tube placements, GERD who presented to [facility] emergency room with reports of hemetemesis as well as abdominal distention. The patient was then evaluated. He was then admitted to the medical floor. He was given IV Protonix. Gastroenterology consultation was requested. He then underwent an EGD, which showed no evidence of acute bleeding. He was then restarted on his tube feeds without any complications. He did remain hypotensive witho ut any acute etiology. He was placed on a low dose dopamine as well as antibiotic therapy and IV fl uids. His blood pressure did improve. He was maintained on antibiotic therapy and his dopamine was weaned off. The patient was set to be discharged; however, it was noted that he began to have atri al fibrillation. Cardiology was consulted. He recommended medical therapy. He was placed on dilti azem. Cardiology evaluated the patient who treated him medically. He did have a peak troponin of 2 2, which eventually trended downwards. The patient was treated appropriately. He continued to have no issues with his tube feeds. Clinically, the patient overall did not improve and at that time, h ospice was considered. Palliative care spoke with the patient's family, and they are agreeable to t ransition to hospice care. He will be transitioned to hospice care. Arrangements have been made vi a case management. The family has been notified and he will be transferred later today to the [facility] with transition to hospice care. DISCHARGE DIET: Tube feeds, 60 mL an hour. DISCHARGE FOLLOWUP: With the hospice team. CODE STATUS: DNR. ALLERGIES: No known drug allergies. RESTRICTIONS: None. Total discharge time 33 minutes.
== END 2017-08-09 16:32 | disposition hospice, inpatient (51) | DRG 871 ==
LOC: ERS 19:01 → T4-A 23:09 → OBSVTOIN 08-03 14:44 → CCU 08-04 12:35 → 2SE 08-04 20:08 → IMCU/EMU 08-05 13:24
PROVIDERS: ADMIT Family Medicine; ATTEND Family Medicine
PROC: 0DJ08ZZ Inspection of Upper Intestinal Tract, Via Natural or Artificial Opening Endoscopic (ICD-10-PCS; principal; 2017-08-02)
DX: A41.9 Sepsis, unspecified organism (principal); J96.01 Acute respiratory failure with hypoxia; I21.4 Non-ST elevation (NSTEMI) myocardial infarction; G82.50 Quadriplegia, unspecified; N17.9 Acute kidney failure, unspecified; K25.4 Chronic or unspecified gastric ulcer with hemorrhage; I82.412 Acute embolism and thrombosis of left femoral vein; J18.9 Pneumonia, unspecified organism; I48.0 Paroxysmal atrial fibrillation; I69.354 Hemiplegia and hemiparesis following cerebral infarction affecting left non-dominant side; J98.11 Atelectasis; R13.12 Dysphagia, oropharyngeal phase; I10 Essential (primary) hypertension; I69.320 Aphasia following cerebral infarction; I69.391 Dysphagia following cerebral infarction; Z93.1 Gastrostomy status; K21.9 Gastro-esophageal reflux disease without esophagitis; K44.9 Diaphragmatic hernia without obstruction or gangrene; K29.70 Gastritis, unspecified, without bleeding; R65.20 Severe sepsis without septic shock; Y95 Nosocomial condition; Z51.5 Encounter for palliative care; T50.2X5A Adverse effect of carbonic-anhydrase inhibitors, benzothiadiazides and other diuretics, initial encounter; T36.8X5A Adverse effect of other systemic antibiotics, initial encounter; Z66 Do not resuscitate; I69.364 Other paralytic syndrome following cerebral infarction affecting left non-dominant side; R62.7 Adult failure to thrive
CPT/HCPCS: 36415; 71010; 71250; 74022; 74176; 74177; 80048; 80053; 80202; 81003; 81015; 82274; 82533; 82553; 83735; 83880; 84484; 85007; 85025; 85027; 85610; 85730; 86850; 86900; 86901; 87015; 87040; 87045; 87046; 87086; 87449; 87899; 93005; 93010; 93306; 93970; 94640; 96361; 96365; 96366; 96375; 96376; C9113; G8996-GN-CN; G8997-GN-CN; J1160; J1265; J1650; J1940; J1956; J2185; J2405; J2704; J3370; J7050; J7620